=== PATIENT | male | born 1975 | race Two or more races ===

== ENCOUNTER 2024-06-22 12:40 | Day surgery (SDC) | payer MEDICAID, SELFPAY ==
[2024-06-22] VITALS (13 sets, daily range): BP systolic 107–140; BP diastolic 66–99; PULSE 50–74; RESP 14–20; TEMP 36.5–36.7; O2SAT 94–100; BMI 27.4
[2024-06-22] MEDS: fentaNYL CIT INJ 50 mCg/ML AMP 2ML (ASD USE ONLY) IV (14:28)
[2024-06-22] MEDS: DiphenhydrAMINE INJ 50 MG/ML VIAL 25 MG IV (14:34)
[2024-06-22] MEDS: MIDAZOLAM INJ 1 MG/ML VIAL 2 ML (ASD USE ONLY) 2 MG IV (14:40)
--- NOTE | 2024-06-22 15:00 | SUR.PHASEII ---
1458 patient is sleepy and arousable to painful stimuli, s/p colonoscopy under IV sedation, report received from Olivia KEENAN.
--- NOTE | 2024-06-22 16:09 | SUR.PHASEII ---
1545 patient is awake, alert, breathing unlabored. pt disconnected from vital signs monitor, ambulated to bathroom and will change to own clothe. 1605 patient is awake, alert, breathing unlabored, able to drink water with no nausea or vomiting, able to ambulate to bathroom and pass gas, meets discharge criteria, discharge instructions given to patient and daughter Hasmukh, patient discharged home in wheelchair with all belongings.
== END 2024-06-22 16:05 | disposition home or self-care (01) ==
PROVIDERS: PCP Physician Assistant; Referring Provider Surgery; Visit Provider Surgery
PROC: 0DBE8ZX Excision of Large Intestine, Via Natural or Artificial Opening Endoscopic, Diagnostic (ICD-10-PCS; CPT 45380; principal; 2024-06-22 14:30)
DX: Z12.11 Encounter for screening for malignant neoplasm of colon (principal); Z80.0 Family history of malignant neoplasm of digestive organs; N40.0 Benign prostatic hyperplasia without lower urinary tract symptoms
CPT/HCPCS: 45378; J1200; J2250; J3010

== ENCOUNTER → 2024-12-14 | Outpatient (BNVA) | payer MEDICAID, SELFPAY | END | disposition home or self-care (01) | PROVIDERS: PCP Physician Assistant; Referring Provider Physician Assistant; Visit Provider Urology | DX: N40.1 Benign prostatic hyperplasia with lower urinary tract symptoms (principal); R39.12 Poor urinary stream; I10 Essential (primary) hypertension; E78.00 Pure hypercholesterolemia, unspecified | CPT/HCPCS: 51741; 51798 ==

== ENCOUNTER → 2025-04-10 | Outpatient (BNVA) | payer MEDICAID, SELFPAY | END | disposition home or self-care (01) | PROVIDERS: PCP Physician Assistant; Referring Provider Physician Assistant; Visit Provider Urology | DX: N40.1 Benign prostatic hyperplasia with lower urinary tract symptoms (principal); N13.8 Other obstructive and reflux uropathy; N52.9 Male erectile dysfunction, unspecified; I10 Essential (primary) hypertension; E78.00 Pure hypercholesterolemia, unspecified | CPT/HCPCS: 81003; 99212; G0463 ==